=== PATIENT | female | born 1980 | race Caucasian/White ===

== ENCOUNTER 2016-08-04 05:41 | Day surgery (SDC) | payer BC ==
[2016-08-04] VITALS (37 sets, daily range): BP systolic 103–128; BP diastolic 51–71; PULSE 55–90; RESP 8–32; TEMP 97–98.6; O2SAT 89–100; Ht 165.1 cm; Wt 70.8 kg
[~2016-08-04] VITALS: Ht 165.1 cm; Wt 70.8 kg
[~2016-08-04 05:41] MED LIST: ALBU17AE4 IH; ASCO500C15 PO; AZIT250T6 PO; CALC-504 PO; IRON50TA PO; LABE100T PO; PREN1TAB53 PO
--- OUTSIDE RECORDS SUMMARY | 2016-08-04 05:44 | XMS REPORT | Continuity of Care Document ---
Author Author [facility] Organization [facility] Address Unknown Phone Unavailable Support Name Relationship Address Phone RAQUEL REDDY MD Caregiver [address] [place] [address] [place] [address] Unavailable WILLIE QUIÑONEZ MD Caregiver [address] [place] [address] Unavailable WILLIE QUIÑONEZ MD Caregiver [address] [place] [address] Unavailable KVNG CROOKS Next Of Kin [address] [address] CP Insurance Providers Guarantor Chalino Crooks Address [address] [place] [address] CP Email [email or web address] Payer [employer] Other Policy Number [id number] Subscriber's Name Kvng Crooks Judy Relationship 01 Spouse Group Number [id number] Effective Date 11 Advance Directives Directive Response Recorded Date/Time Ordered Resuscitation Status Full Code 06/16/16 10:15am Resuscitation Documents on File No 06/16/16 10:35am DPOA for Healthcare Only No 06/16/16 10:35am Living Will No 06/16/16 10:35am Problems Active Problems Medical Problem Onset Date Status Gastroenteritis Unknown Acute Surgical Problem Onset Date Status Status post repeat low transverse section Unknown Medications Current Home Medications Medication Dose Units Route Directions Days Qty Instructions Start Date Albuterol 17 Gm Aerosol 17 Gm Inhalation As Needed 08/21/08 Ascorbic Acid (Vitamin C) 500 Mg Capsule.sa 500 Mg Oral Daily 05/02 Azithromycin 250 Mg Tablet 1 Tab Oral Daily 6 Tablet TAKE TWO TABLETS ON DAY ONE, THEN ONE TABLET DAILY UNTIL ALL TAKEN. 06/15/16 Calcium Carbonate/Vitamin D3 (Jitendra-600 W/Vit D Tablet) 1 Tab Tablet 2 Tab Oral Daily 09/05/08 Hydrocodone/Acetaminophen ([place] 5-325 Tablet) 5-325 Tablet 1-2 Tab Oral Every 4 Hours as needed for Pain 40 Tablet 06/17/16 Ibuprofen 800 Mg Tablet 800 Mg Oral Every 8 Hours as needed for Pain 30 Tablet 06/17/16 Iron 50 Mg Tablet 65 Mg Oral Daily 2 09/05/08 Labetalol Hcl 100 Mg Tablet 1 Tab Oral Daily 06/15/16 Vits W-Ca,Fe,Fa(<1MG) () 1 Tab Tablet 1 Tab Oral Daily 09/05/08 Social History Social History Problem Response Recorded Date/Time Onset Date Status Reason for Hospitalization section 06/18/2016 6:44pm Not Applicable Not Applicable Chewing Tobacco Status No 06/15/2016 10:33am Not Applicable Not Applicable Hx Substance Use No 06/16/2016 10:35am Not Applicable Not Applicable Hx Alcohol Use No 06/15/2016 10:33am Not Applicable Not Applicable Has the pt used tobacco in the last 12 months No 06/16/2016 10:35am Not Applicable Not Applicable Query Response Start Date Stop Date Smoking Status Never smoker Hospital Discharge Instructions Instructions: Care Instructions: Reason for Hospitalization: section I was in the hospital because (patient own words): c section Discharge Diet: Regular Discharge Activity: See discharge instructions Follow Up Appointments: Follow up with Dr. Quiñonez June 21 at 2:00 pm Pending Lab / Results: No Pending Lab Wound/Incision Care: See discharge instructions Pain Management/Treatment: Ibuprofen 800 mg and Norco5/325 mg Expected Signs/Symptoms: See discharge instructions Notify Physician If: See discharge instructions During Business Hours:: Please call the physician's office at [phone] After Business Hours:: Please call [phone] and have the cnc milling machine operator page the physician. Condition at time of discharge: Good Plan of Care Discharge Date 06/18/16 7:22pm Disposition 01 DISCHARGED HOME, SELF-CARE Instructions/Education Provided MC Delivery Prescriptions See Medication Section Care Plan and Goals See Discharge Instructions Section Functional Status Query Response Date Recorded Mobility Status Ambulatory June 18, 2016 6:44pm Assistive Devices None June 18, 2016 6:44pm Activity Limitations None June 18, 2016 6:44pm Feeding Ability Independent June 18, 2016 6:44pm Toileting Ability Independent June 18, 2016 6:44pm Grooming Ability Independent June 18, 2016 6:44pm Dressing Ability Independent June 18, 2016 6:44pm Driving Ability Independent June 18, 2016 6:44pm Housework Ability Independent June 18, 2016 6:44pm Meal Preparation Ability Independent June 18, 2016 6:44pm Stair Climbing Ability Independent June 18, 2016 6:44pm Ability to complete ADL's impeded by No change June 18, 2016 6:44pm Cognitive/Perceptual Impairments None June 18, 2016 6:44pm Preferred Method of Learning Video/TV June 16, 2016 10:32am Allergies, Adverse Reactions, Alerts Allergen Type Severity Reaction Status Last Updated Oxycodone Allergy Intermediate hives Active 06/21/13 Cephalexin Allergy Intermediate hives Active 06/21/13 Erythromycin base Allergy Intermediate rash, hives Active 06/21/13 Nitrofurantoin Allergy Intermediate HIVES Active 06/21/13 Sertraline Allergy Intermediate HIVES Active 06/21/13 Penicillin g Allergy Severe HIVES, swelling Active 06/21/13 Latex Allergy Severe eats skin Active 06/21/13 Immunizations Query Response on File Recorded Date/Time Hx Influenza Vaccination Y FEB 2016 06/15/16 10:33am Hx Pneumococcal Vaccination No 06/15/16 10:33am Hx Influenza Vaccination Y FEB 2016 06/15/16 10:33am Influenza Vaccine Hx 11/26/15 06/16/16 10:35am Tdap Vaccine Hx 05/04/16 06/16/16 10:35am Vital Signs Acute Vital Signs Vital Response Date/Time Temperature (Fahrenheit) 98.0 deg F (96.8 - 99.1) 06/18/2016 4:00pm Temperature (Calculated Celsius) 36.77598 degrees C (36.0 - 37.3) 06/18/2016 4:00pm Pulse Rate (adult) 75 bpm (60 - 100) 06/18/2016 4:00pm Respiratory Rate 16 breaths/min (10 - 20) 06/18/2016 4:00pm O2 Sat by Pulse Oximetry 95 % (90 - 100) 06/18/2016 4:00pm Oxygen Delivery Method Room Air 06/18/2016 4:00pm Blood Pressure 121/70 mm Hg 06/18/2016 4:00pm Blood Pressure Source Automatic Cuff 06/18/2016 4:00pm Height (Feet) 5 feet 06/16/2016 10:35am Height (Inches) 5.00 inches 06/16/2016 10:35am Weight (Kilograms) 83.200 kg 06/16/2016 10:35am Height 5 ft 5 in 06/16/2016 10:35am Weight 183.42 lb 06/16/2016 10:35am Body Mass Index 30.0 kg/m^2 06/16/2016 10:35am Results Laboratory Results Test Name Result Units Flags Reference Collection Date/Time Result Date/ Time Comments White Blood Count 11.6 T/MM3 H 4.5-11.0 06/16/2016 5:13pm 06/16/2016 5: 20pm Red Blood Count 3.37 M/MM3 L 4.00-5.20 06/16/2016 5:13pm 06/16/2016 5: 20pm Hemoglobin 10.4 GM/DL L 12-16 06/16/2016 5:13pm 06/16/2016 5:20pm Hematocrit 32.3 % L 36-46 06/16/2016 5:13pm 06/16/2016 5:20pm Mean Corpuscular Volume 95.8 UM3 80-100 06/16/2016 5:13pm 06/16/2016 5: 20pm Mean Corpuscular Hemoglobin 30.9 UUG 26-34 06/16/2016 5:13pm 2016 5:20pm Mean Corpuscular Hemoglobin Concent 32.2 GM/DL 31-37 06/16/2016 5:13pm 06/16/2016 5:20pm RDW Standard Deviation 45.1 FL 36.9-50.2 06/16/2016 5:13pm 06/16/2016 5 :20pm Platelet Count 199 T/MM3 130-400 06/16/2016 5:13pm 06/16/2016 5:20pm Mean Platelet Volume 9.4 UM3 9.4-12.4 06/16/2016 5:13pm 06/16/2016 5: 20pm Neutrophils (%) (Auto) 65.3 % 33-66 06/16/2016 10:43am 06/16/2016 10: 49am Lymphocytes (%) (Auto) 22.4 % L 23-45 06/16/2016 10:43am 06/16/2016 10: 49am Monocytes (%) (Auto) 10.0 % H 0-9.0 06/16/2016 10:43am 06/16/2016 10: 49am Eosinophils (%) (Auto) 1.5 % 0-4 06/16/2016 10:43am 06/16/2016 10:49am Basophils (%) (Auto) 0.2 % 0-2 06/16/2016 10:43am 06/16/2016 10:49am Immature Granulocyte % (Auto) 0.6 % H 0.0-0.5 06/16/2016 10:43am 2016 10:49am Absolute Neutrophils (auto) 6.2 T/MM3 1.8-7.7 06/16/2016 10:43am 2016 10:49am Absolute Lymphocytes (auto) 2.1 T/MM3 1-4.8 06/16/2016 10:43am 2016 10:49am Absolute Monocytes (auto) 1.0 T/MM3 H 0-0.8 06/16/2016 10:43am 2016 10:49am Absolute Eosinophils (auto) 0.1 T/MM3 0-0.5 06/16/2016 10:43am 2016 10:49am Absolute Basophils (auto) 0.0 T/MM3 0-0.2 06/16/2016 10:43am 2016 10:49am Absolute Immature Granulocyte (auto 0.06 T/MM3 H 0.00-0.03 06/16/2016 10: 43am 06/16/2016 10:49am Procedures Procedure Status Date Provider(s) section Completed 06/16/16 WILLIE QUIÑONEZ MD Encounters Encounter Location Arrival/Admit Date Discharge/Depart Date Attending Provider Discharged Inpatient [facility] 06/16/16 10:06am 06/18/16 7:22pm WILLIE QUIÑONEZ MD
[2016-08-04 06:08] LABS: BASOPHILS % (AUTO) 0.3 % (0-2); EOSINOPHILS # (AUTO) 0.3 T/MM3 (0-0.5); EOSINOPHILS % (AUTO) 2.9 % (0-4); HCT - HEMATOCRIT 38.3 % (36-46); HGB - HEMOGLOBIN 12.4 GM/DL (12-16); IMMATURE GRANULOCYTE # (AUTO) 0.01 T/MM3 (0.00-0.03); IMMATURE GRANULOCYTE % (AUTO) 0.1 % (0.0-0.5); LYMPHOCYTES # (AUTO) 3.6 T/MM3 (1-4.8); LYMPHOCYTES % (AUTO) 38.6 % (23-45); MEAN CORPUSCULAR HGB 30.5 UUG (26-34); MEAN CORPUSCULAR HGB CONC(MCHC 32.4 GM/DL (31-37); MEAN CORPUSCULAR VOLUME 94.3 UM3 (80-100); MEAN PLATELET VOLUME 9.2 UM3 (9.4-12.4); MONOCYTES # (AUTO) 0.6 T/MM3 (0-0.8); MONOCYTES % (AUTO) 5.8 % (0-9.0); NEUTROPHILS #(AUTO)-ABSOLUTE 4.9 T/MM3 (1.8-7.7); NEUTROPHILS % (AUTO) 52.3 % (33-66); RED BLOOD COUNT 4.06 M/MM3 (4.00-5.20); WBC - WHITE BLOOD COUNT 9.4 T/MM3 (4.5-11.0)
[2016-08-04 06:14] LABS: CHLORIDE 107 MEQ/L (98-107); CO2 - CARBON DIOXIDE 26 MEQ/L (22-30); POTASSIUM 3.8 MEQ/L (3.6-5); SODIUM 145 MEQ/L (134-144)
[2016-08-04 06:15] LABS: ANION GAP 12 MEQ/L (5-15); BUN/CREATININE RATIO 13 RATIO (6-26); CALCIUM 9.3 MG/DL (8.4-10.2); CREATININE 0.9 MG/DL (0.7-1.2); GLOMERULAR FILTRATION RATE 72; GLUCOSE 90 MG/DL (65-110)
[2016-08-04] MEDS ORDERED: AMOX500C2 PO (06:20)
[2016-08-04] MEDS: LR 1,000 ML IV PRN ×2 (06:43→12:14)
[2016-08-04] MEDS ORDERED: PROPOFOL 200mg 20 ML IV ONE ×2 (06:50→07:27)
[2016-08-04] MEDS ORDERED: ROCURONIUM 50mg/5ml INJECTION IV ONE (06:50)
[2016-08-04] MEDS ORDERED: FENTANYL 100mcg/2ml INJECTION ONE (06:54)
[2016-08-04] MEDS ORDERED: LIDOCAINE 1% (10mg/ml) 2ml SDV INJ ONE (07:00)
--- NOTE | 2016-08-04 07:03 | ANESPREOP ---
Anesthesia Record Date and Time DATE: 08/04/16 TIME: 07:02 Pre-Op Diagnosis request sterilization Proposed Surgical Procedure D&C LAP TUBAL NPO since: 2199 Allergies: Coded Allergies: latex (Verified Allergy, Severe, eats skin , 06/21/13) penicillin G (Verified Allergy, Severe, HIVES, swelling, 06/21/13) cephalexin (Verified Allergy, Intermediate, hives, 06/21/13) erythromycin base (Verified Allergy, Intermediate, rash, hives, 06/21/13) nitrofurantoin (Verified Allergy, Intermediate, HIVES, 06/21/13) oxycodone (Verified Allergy, Intermediate, hives, 06/21/13) sertraline (Verified Allergy, Intermediate, HIVES, 06/21/13) Ht/Wt/BMI Height: 5 ' 5.00 " Weight: 70.800 kg BMI: 26.0 kg/m2 Vital Signs Date Time Temp Pulse Resp B/P Pulse Ox O2 Delivery O2 Flow Rate FiO2 08/04/16 05:52 98.6 83 12 106/58 95 Room Air Medications Inpatient Medications Current Medications Medications (Trade) Dose Ordered Sig/Maribell Start Time Stop Time Status Last Admin Dose Admin Lactated Ringer's (Lactated Ringers) 1,000 ml @ 125 mls/hr Q8H PRN 08/04/16 06:30 08/04/16 06:43 125 MLS/HR Albuterol (Albuterol) 17 Gm Aerosol, 17 GM IH PRN, (Reported) Last Taken: on 06/06/16 Amoxicillin (Amoxicillin) 500 Mg Capsule, 1 CAP PO BID, (Reported) Last Taken: on 08/03/161999 Ascorbic Acid (Vitamin C) 500 Mg Capsule.sa, 500 MG PO DAILY, (Reported) Last Taken: on 08/03/161999 Calcium Carbonate/Vitamin D3 (Jitendra-600 W/Vit D Tablet) 1 Tab Tablet, 2 TAB PO DAILY, (Reported) Last Taken: on 08/03/161999 Iron (Iron) 50 Mg Tablet, 65 MG PO DAILY, ( Reported) Last Taken: on 08/03/161999 Labetalol HCl (Labetalol HCl) 100 Mg Tablet, 1 TAB PO HS, (Reported) Last Taken: on 08/03/161999 Vits W-Ca,Fe,Fa(<1MG) () 1 Tab Tablet, 1 TAB PO DAILY, (Reported) Last Taken: on 08/03/161999 Currently on Beta Nicole: Yes Beta Nicole Last Taken: 08-03-16 @ 1999 (takes for migrainesa) Medical/Surgical History Anesthesia PMH: Reports: Anesthesia Reactions (N & V; swelling of lips and itching after delivery), Asthma (uses inhaler as needed), Headaches (migraines) , Denies: *Angina, *Diabetes, *Dyspnea, *Hypertension, *ND, Arthritis, Blood Transfusion Reac, CHF, COPD, CVA/Stroke/TIA, Cancer, Clotting Problems, Deep Vein Thrombosis, Glaucoma, Hepatitis, Hiatal Hernia, Malignant Hyperthermia, Pneumonia, Reflux (FROM ), Rheumatic Fever, Seizures, Sleep Apnea, Thyroid Disease, Tuberculosis Smoking Status: Never smoker Has pt. smoked today?: No Use Chewing Tobacco?: No Second Hand Exposure: No Substance Use Type: does not use Alcohol Intake: none Past Surgical History Orthopedic Surgeries: No Abdominal Surgeries: No Genitourinary Surgeries: No Cardiac Surgeries: No Endocrine Surgeries: No Reproductive Surgeries: Yes - C- SECTION X3 ,laparoscopy for endometrosis Neurological Surgeries: No Ear Surgeries: No Nose Surgeries: No Throat Surgeries: Yes - tonsillectomy and adenoidectomy Other Surgeries: Yes - mole removal on lower abdomen Anesthesia Adverse Reactions: FOUND none, FOUND other Pertinent Findings Laboratory Tests 08/04/16 05:50 Test 08/04/16 05:50 Human Chorionic Gonadotropin, Qual Negative (NEGATIVE) EKG Rhythm: Sinus Rhythm Physical Exam Respiratory: Lungs clear Cardiovascular: FOUND Regular rate, rhythm, FOUND No murmur Airway Assessment Mallampati Score: I TMD: 3 Fingerbreadths Neck Extension: Good Teeth: Chipped Teeth/Crowns Overall Assessment: No Airway Concerns ASA: 2 Plan Anesthesia Plan: GETA Discussion Discussed risks/options/alternatives of anesthesia and questions answered. Patient consents. Nursing pain assessment noted. Present: Spouse Attestation Statement Prior to the delivery of any anesthetic medication, I examined the patient, developed the plan, obtained the patient's consent and discussed the risk and benefits of the procedure with the patient/guardian. PILY MOULTON CRNA Aug 04, 2016 07:03
[2016-08-04] MEDS ORDERED: HYDROMORPHONE 2mg/ml INJECTION ONE (08:34)
[2016-08-04] MEDS ORDERED: ONDANSETRON 4mg/2ml INJECTION ONE (08:35)
[2016-08-04] MEDS ORDERED: SUGAMMADEX 200 MG/2 ML INJECTION IV ONE (08:36)
[2016-08-04] MEDS ORDERED: MORPHINE SULFATE 4 MG SYRINGE IV PRN (08:45)
[2016-08-04] MEDS ORDERED: METOCLOPRAMIDE 10mg/2ml INJECTION IV PRN ×2 (08:45)
[2016-08-04] MEDS ORDERED: HYDROCODONE/APAP 5 mg/325 mg TABLET PO PRN (08:45)
[2016-08-04] MEDS ORDERED: ONDANSETRON 4mg/2ml INJECTION IV PRN (08:45)
--- NOTE | 2016-08-04 08:47 | GYNOPNOTE1 ---
ECD Postoperative Note Date of Operation: 08/04/16 Preoperative Diagnosis: Sterilization Preoperative Dx Comments 7 weeks with suspected retained products Thin lower uterine segment Postoperative Diagnosis: Same as Preoperative Procedure: Dx Laparoscopy, Hysteroscopy with D&C Bilateral Salpingectomy Surgeon: Willie Boyle MD Anesthesia Provider: Dominik No CRNA Anesthesia Type: general Complications: None Estimated Blood Loss: 50 WILLIE BOYLE MD Aug 04, 2016 08:47
[2016-08-04] MEDS ORDERED: HYDR-4246 PO (08:50)
[2016-08-04] MEDS: HYDROMORPHONE 2mg/ml INJECTION IV PRN ×2 (09:06→09:32)
[2016-08-04] MEDS ORDERED: MORPHINE SULFATE 10 MG SYRINGE IV PRN (09:30)
[2016-08-04] MEDS ORDERED: MORPHINE 10mg/ml vl INJECTION IV PRN (09:30)
[2016-08-04] MEDS ORDERED: ACETAMINOPHEN 1,000 MG in RTU-SALINE 100 ML IV ONE (09:45)
--- NOTE | 2016-08-04 10:16 | NUR ---
PACU Care This RN assumed care of pt at this time in pacu. Dominik No CRNA here to see pt in pacu.
--- NOTE | 2016-08-04 10:37 | NUR ---
PACU Nausea notification Dominik No CRNA notified of pts continued nausea/vomiting x2 post zofran and reglan administration. New order received for scopalamine patch and to transfer to phase 2 post op. Pt rates pain 2/10 at this time, with scant bleeding observed. Vital signs remain stable.
[2016-08-04] MEDS ORDERED: SCOPOLAMINE 1.5 MG PATCH TD ONE (10:45)
--- NOTE | 2016-08-04 11:55 | NUR ---
Nausea/Anesthesia Dominik No CRNA notified of pts continued nausea/vomiting. Pt unable to tolerate PO at this time. Dominik verbalized that he would come assess pt.
--- NOTE | 2016-08-04 12:17 | NUR ---
Notification Dr Boyle notified of pts status. No new orders received at this time.
--- NOTE | 2016-08-04 12:22 | NUR ---
Anesthesia Dominik No CRNA here to see pt.
--- NOTE | 2016-08-04 12:40 | NUR ---
Anesthesia Dominik No CRNA in room. New orders received. Decadron 8mg IV now, and Benadryl 25mg IV now.
[2016-08-04] MEDS ORDERED: DEXAMETHASONE 4mg/ml - 1ml INJECTION IV ONE (12:45)
[2016-08-04] MEDS ORDERED: DiphenhydrAMINE 50 MG/ML INJECTION IV ONE (12:45)
--- NOTE | 2016-08-04 14:24 | ANESPO ---
Post-Op Note Date 08/04/16 Time: 14:24 Status Pt Participated in Evaluation: Pt participated in person Vital Signs Date Time Temp Pulse Resp B/P Pulse Ox O2 Delivery O2 Flow Rate FiO2 08/04/16 12:35 78 18 119/68 97 Nasal Cannula 1.00 08/04/16 10:50 97.0 Respiratory Function: Airway patent, Regular respirations Cardiovascular Function: Regular pulse Mental Status: Alert/oriented Pain Level Intensity: 2 Hydration: Taking po fluids, Nausea Complications during Recovery None apparent Follow-Up Instructions Instructions Per Surgeon PILY MOULTON CRNA Aug 04, 2016 14:24
--- NOTE | 2016-08-04 20:54 | OPNOTEF ---
DATE OF SURGERY 08/04/2016 PREOPERATIVE DIAGNOSES 1. Seven weeks with possible retained products. 2. Desires sterilization. 3. Thin lower uterine segment. POSTOPERATIVE DIAGNOSES 1. Seven weeks with possible retained products. 2. Desires sterilization. 3. Thin lower uterine segment. PROCEDURE 1. Laparoscopic bilateral salpingectomy. 2. Hysteroscopy with dilation and curettage. SURGEON Dr. Diamond Boyle ANESTHESIA General endotracheal. ANESTHESIOLOGIST Dominik No CRNA COMPLICATIONS None. ESTIMATED BLOOD LOSS 50 mL. FINDINGS Normal-sized uterus with dense adhesions in the anterior cul-de-sac. Normal- appearing adnexa with varicosities to the left ovary. The endometrial cavity appeared shaggy without evidence of a discrete endometrial mass. The lower uterine segment beneath the bladder was extremely thin. PROCEDURE The patient was taken to the operating room where anesthesia was obtained. She was placed in the lithotomy position and prepared and draped in the normal sterile fashion. Her bladder was drained. A sponge stick was placed in the vagina. Due to the thin lower uterine segment seen on sonogram I did not want to put anything into the uterus until we had laparoscopic visualization. The legs were lowered, gloves were changed and attention was turned to the abdomen. All skin incisions were injected with 0.25% Marcaine prior to incision. A 5-mm umbilical incision was made and the Veress needle was placed. The abdomen was insufflated with CO2. A 5-mm trocar was placed with the camera inside to watch entry into the abdomen. The patient was placed in a small amount of Trendelenburg. An 8-mm port was placed in the midline through her previous Pfannenstiel scar. A 5-mm port was placed in the left lower quadrant, both under direct visualization. The abdomen and pelvis were inspected with the findings noted above. The fallopian tubes were identified and carried out to the fimbria. The right mesosalpinx was cauterized and transected. The right fallopian tube was cauterized and transected close to the cornua. The tube was delivered through the 8-mm port. This was repeated with the patient's left fallopian tube. Good hemostasis was noted. The laparoscope was maintained and I returned to the vagina. An open-sided speculum was placed in the vagina. The anterior cervix was grasped with an Allis. The cervix was carefully dilated to 15-Serbian. A 5-mm hysteroscope was placed. No discrete mass was found but the endometrium had a generalized shaggy appearance to it. The hysteroscope was removed. A sharp curette was placed through the cervix and the endometrium was curetted in all four quadrants. I could feel that the anterior lower uterine segment was thin so I stayed away from this area. On laparoscopic visualization I watched as the fundus was perforated with a curette. It was quickly withdrawn. Due to the perforation, the curetting was abandoned and I did not do another hysteroscope. The small amount of curettings that were obtained were sent to Pathology. Also, laparoscopically there was a small collection of blood and what appeared to be endometrium in the right anterior cul-de-sac next to the adhesions. I returned abdominally. The small fluid collection in the right anterior cul-de-sac was suctioned. The perforation of the fundus was inspected. It was gently cauterized with the bipolar and good hemostasis was noted. There continued to be a very small oozing of blood in the right anterior cul-de-sac. Due to the adhesions and the appearance of her uterus on sonogram I did not want to start a dissection in this area for fear of getting into worse conditions. Some Avitene was then placed in this location and good hemostasis was noted. I do not feel that I perforated the lower uterine segment with the curette. My suspicion is that the distention of the hysteroscopy fluids opened up the lower uterine segment further and allowed some fluid and a small amount of blood to escape. Everything was hemostatic at the end of the case. The two lower ports were removed under direct visualization. The abdomen was desufflated and the umbilical port was removed. The skin incisions were all closed with 4-0 Vicryl in a subcuticular manner. Dermabond was placed. Attention was returned to the vagina. The Allis clamp was removed and good hemostasis was noted. The patient was taken out of the lithotomy position and to the recovery room in good condition. Sponge and sharp counts were correct. LOS
== END 2016-08-04 14:30 | disposition home or self-care (01) ==
LOC: SCU 05:41
PROVIDERS: ATTEND Obstetrics & Gynecology
DX: Z30.2 Encounter for sterilization (principal); N83.8 Other noninflammatory disorders of ovary, fallopian tube and broad ligament; J45.909 Unspecified asthma, uncomplicated; G43.909 Migraine, unspecified, not intractable, without status migrainosus; I34.1 Nonrheumatic mitral (valve) prolapse; Z79.899 Other long term (current) drug therapy; Z88.0 Allergy status to penicillin; Z88.1 Allergy status to other antibiotic agents; Z88.5 Allergy status to narcotic agent; Z88.8 Allergy status to other drugs, medicaments and biological substances; Z91.041 Radiographic dye allergy status
CPT/HCPCS: 36415; 58558; 58670; 80048; 84703; 85025; J0131; J0330; J1100; J1170; J1200; J2405; J2704; J2765; J3010; J7030; J7050; J7120